=== PATIENT | male | born 1950 | race Caucasian/White ===

== ENCOUNTER 2016-09-23 14:44 | Emergency (ER) | payer OTHER ==
[2016-09-23 14:50] VITALS: TEMP 98; BMI 31.3
--- NOTE | 2016-09-23 15:02 | EDPRACDOC ---
<Diamond Robins N - Last Filed: 09/23/16 17:08> - General Information Source: Patient - History of Present Illness Exact Onset of Symptoms: Unknown Onset: 1 week Symptoms Started: Reports: Gradually, At Rest Symptoms: Reports: Diplopia Symptoms Description: Worsening Weakness: Left: Face (LEFT LID DROOP FOR THE LAST DAY;) Associated Symptoms: Denies: Facial Pain, Loss of Consciousness, Nausea/Vomiting , Nasal Congestion HPI: PT PRESENTS WITH A WEEK OF PROGRESSIVE DOUBLE VISION CAUSED BY DISCONJUGATE MOVEMENT OF HIS LEFT EYE. IT IS LAGGING BEHIND THE MOVEMENTS OF HIS RIGHT EYE. REPORTS EXCELLENT VISION UP UNTIL THIS TIME. WENT TO AN EYE DOCTOR THIS WEEK WHO REPORTED HE HAD SOME MISALIGNMENT. <Ge Swan - Last Filed: 09/23/16 17:23> - General Chief Complaint: Neuro Symptoms/Deficits Stated Complaint: STOKE-LIKE SYMPTOMS Time Seen by Provider: 09/23/16 14:54 Allergies/Adverse Reactions: Allergies Allergy/AdvReac Type Severity Reaction Status Date / Time morphine Allergy Unknown/See Verified 09/23/16 14:46 Comments Home Medications: Ambulatory Orders Allopurinol [Zyloprim] 100 mg PO DAILY 09/23/16 Aspirin (Enteric Coated) [Ecotrin] 81 mg PO DAILY 09/23/16 Benazepril HCl [Lotensin] 10 mg PO DAILY 09/23/16 Colchicine [Colcrys] 0.6 mg PO DAILY PRN 09/23/16 Diphenhydramine HCl 4 tsp PO QHS 09/23/16 Ergocalciferol (Vitamin D2) [Vitamin D2 (ergocalciferol)] 50,000 units PO MOFR 09/23/16 Gemfibrozil [Lopid] 600 mg PO BID 09/23/16 Metoprolol Succinate [Toprol Xl] 100 mg PO DAILY 09/23/16 Nitroglycerin [Nitrostat] 0.4 mg SL [id number] PRN 09/23/16 Omeprazole [Prilosec] 20 mg PO DAILY 09/23/16 Oxycodone HCl/Acetaminophen [Percocet 10-325 mg Tablet] 1 tab PO BID PRN ED Past Medical History - History Reviewed Yes Nurses notes reviewed and agree except as marked - Patient Medical History Cardiac History: Reports: Hypertension, Hypercholesterolemia Psychological History: Denies: Depression Systemic History: Reports: Diabetes Surgical History: Reports: Cholecystectomy - Social Medical History Smoking Status: Never smoker Lives With: Family Lives In: Home <Ge Swan Anjali - Last Filed: 09/23/16 17:23> EDM Review of Systems - Review of Systems ROS Negative Except as Marked: Yes All systems reviewed and were negative except as marked Constitutional: negative: Fever Eyes: Double Vision, Other (LEFT EYE IS MOVING SLOWER THAN HIS RIGHT) Respiratory: negative: Shortness of Breath Cardiovascular: negative: Chest Pain Gastrointestinal: negative: Pain, Vomiting Neurological: negative: Gait Difficulty, Headache, Speech Difficulty <BenyGe C - Last Filed: 09/23/16 17:23> - Physical Exam Last recorded Vital Signs: Last Vital Signs Temp 98.0 F 09/23/16 14:46 Pulse 69 09/23/16 16:50 Resp 18 09/23/16 16:50 BP 129/71 09/23/16 16:50 Pulse Ox 93 09/23/16 16:50 Oxygen Pulse Oxygen Saturation 93 O2 Device Oxygen Flow Rate Fraction of Inspired Oxygen ( FIO2) <Diamond Robins - Last Filed: 09/23/16 17:08> - Physical Exam Constitutional: Alert Oriented to: Time, Person, Place Last recorded Vital Signs: Last Vital Signs Temp 98.0 F 09/23/16 14:46 Pulse 84 09/23/16 14:46 Resp 18 09/23/16 14:46 BP 149/83 09/23/16 14:46 Pulse Ox 96 09/23/16 14:46 Oxygen Pulse Oxygen Saturation 96 O2 Device Oxygen Flow Rate Fraction of Inspired Oxygen ( FIO2) - HEENT Head: negative: Deformity, Laceration Nose: negative: Congestion, Discharge Neck: negative: Limited ROM - Respiratory/Cardiovascular Respiratory: Normal - CTA. negative: Accessory Muscle Use, Diminished, Tachypnea Cardiovascular: negative: Bradycardia, Tachycardia, Irregular - Integumentary Skin: Warm, Dry. negative: Rash - Neurologic Memory Impaired: Normal Motor Function: Normal Mood Description: Anxious, Appropriate Thought: Coherent Perception: Normal <Ag Swanallison Alba - Last Filed: 09/23/16 17:23> NIH Stroke Scale Initial Evaluation Level of Consciousness: Alert LOC- Question: Answers Both Correctly LOC Commands: Both Task Correctly Best Gaze: Normal Visual: No Visual Loss Facial Palsy: Minor Paralysis Motor Arm LEFT: No Drift Motor Arm RIGHT: No Drift Motor Leg LEFT: No Drift Motor Leg RIGHT: No Drift Limb Ataxia: Absent Sensory: Normal Best Language: No Aphasia Dysarthria: Normal Extinction and Inattention: No Abnormality (Neglect) Score: 1out of42 <BenyGe C - Last Filed: 09/23/16 17:23> - Results 09/23/16 15:05 09/23/16 15:05 WBC 14.8 xk/uL (3.8-10.8) H 09/23/16 15:05 RBC 5.82 xM/uL (4.70-6.10) 09/23/16 15:05 Hgb 17.2 g/dL (14.0-18.0) 09/23/16 15:05 Hct 50.0 % (42-52) 09/23/16 15:05 MCV 86 fL (80-94) 09/23/16 15:05 MCH 29.5 pg (27-32) 09/23/16 15:05 MCHC 34.4 g/dl (33-36) 09/23/16 15:05 RDW 13.3 % (11.5-14.5) 09/23/16 15:05 Plt Count 228 xk/uL (130-400) 09/23/16 15:05 MPV 8.3 fL (7.4-10.4) 09/23/16 15:05 Neut % (Auto) 71.3 % (45-76) 09/23/16 15:05 Lymph % (Auto) 17.7 % (17-44) 09/23/16 15:05 Jenkins % (Auto) 7.6 % (3-10) 09/23/16 15:05 Eos % (Auto) 2.4 % (0-5) 09/23/16 15:05 Baso % (Auto) 1.0 % (0-2) 09/23/16 15:05 Absolute Neuts (auto) 10.51 xk/uL (1.7-8.2) H 09/23/16 15:05 Absolute Lymphs (auto) 2.52 xk/uL (0.65-4.75) 09/23/16 15:05 PT 11.0 SEC (9.2-11.2) 09/23/16 15:05 INR 1.1 09/23/16 15:05 APTT 28.2 SEC (22-35) 09/23/16 15:05 Sodium 136 mEq/L (137-146) L 09/23/16 15:05 Potassium 4.1 mEq/L (3.5-5.1) 09/23/16 15:05 Chloride 101 mEq/L (98-107) 09/23/16 15:05 Carbon Dioxide 18 mMOL/L (22-33) L 09/23/16 15:05 Anion Gap 21 mEq/L (8-16) H 09/23/16 15:05 BUN 27 MG/DL (9-20) H 09/23/16 15:05 Creatinine 1.40 MG/DL (0.66-1.25) H 09/23/16 15:05 Estimated GFR (MDRD) 51 mL/min (>=60) L 09/23/16 15:05 Glucose 149 MG/DL (70-99) H 09/23/16 15:05 Calculated Osmolality 270 MOs/Kg (270-290) 09/23/16 15:05 Calcium 9.3 MG/DL (8.4-10.2) 09/23/16 15:05 Total Bilirubin 1.0 MG/DL (0.2-1.3) 09/23/16 15:05 AST 34 IU/L (17-59) 09/23/16 15:05 ALT 40 IU/L (21-72) 09/23/16 15:05 Alkaline Phosphatase 92 IU/L (50-160) 09/23/16 15:05 Troponin I < 0.01 ng/mL (<.04) 09/23/16 15:05 Total Protein 8.5 G/DL (6.3-8.2) H 09/23/16 15:05 Albumin 4.4 G/DL (3.5-5.0) 09/23/16 15:05 Lab Results 09/23/16 09/23/16 09/23/16 15:05 15:05 15:05 WBC 14.8 H RBC 5.82 Hgb 17.2 Hct 50.0 MCV 86 MCH 29.5 MCHC 34.4 RDW 13.3 Plt Count 228 MPV 8.3 Neut % (Auto) 71.3 Lymph % (Auto) 17.7 Jenkins % (Auto) 7.6 Eos % (Auto) 2.4 Baso % (Auto) 1.0 Absolute Neuts (auto) 10.51 H Absolute Lymphs (auto) 2.52 PT 11.0 INR 1.1 APTT 28.2 Sodium 136 L Potassium 4.1 Chloride 101 Carbon Dioxide 18 L Anion Gap 21 H BUN 27 H Creatinine 1.40 H Estimated GFR (MDRD) 51 L Glucose 149 H Calculated Osmolality 270 Calcium 9.3 Total Bilirubin 1.0 AST 34 ALT 40 Alkaline Phosphatase 92 Troponin I < 0.01 Total Protein 8.5 H Albumin 4.4 <Diamond Robins - Last Filed: 09/23/16 17:08> - Re-evaluation Re-evaluation 1 Re-evaluation Time: 17:[address] MCKINNON, NEUROLOGY, HE RECOMMENDS TESTING FOR MYASTHENIA GRAVIS AND THEN FOLLOW UP IN OFFICE. - Results 09/23/16 15:05 09/23/16 15:05 - EKG EKG #1 EKG Time: 15:10 -: Yes EKG interpreted by me Rate: bpm: 74 [place]azy: LAD Rhythm: NSR Block: None <Ge Swan - Last Filed: 09/23/16 17:23> <Diamond Robins - Last Filed: 09/23/16 17:08> Decision Time to Discharge: 17:22 - Departure Yes I personally saw and evaluated the patient. Disposition: Home Education/Counseling Given To: Patient, Family Member Education/Counseling Given Regarding: Diagnosis, Treatment, Prognosis, Follow Up <Ge Swan - Last Filed: 09/23/16 17:23> - Departure Condition: Stable Final Diagnosis: Diplopia, LEFT LID LAG Instructions: Myasthenia Gravis (ED) Referrals: Ruby Marcelo NP [Primary Care Provider] - Call for Appointment Demar Mckinnon MD [Staff Physician] - Call for Appointment Additional Instructions: WE HAVE ORDERED SPECIALLY BLOOD TEST TO HELP YOUR FOLLOW-UP WITH NEUROLOGIST IN DIAGNOSING YOUR PROBLEM. THIS BLOOD TEST WILL NOT BE FOLLOWED BY THE EMERGENCY DEPARTMENT STAFF AND IS ONLY TO HELP WITH FOLLOW-UP WITH A NEUROLOGIST. ED Eye Problem Exam Eye Exam: right eye: normal inspection, left eye: EOMI (LEFT EYE MOVES AT SLOWER RATE THAN RIGHT BUT EVENTUALLY COMES TO SAME FOCAL ENDPOINT), bilateral eye: COY <Ge Swan - Last Filed: 09/23/16 17:23>
[2016-09-23 15:18] LABS: AUTOMATED EOSINOPHIL 2.4 % (0-5); AUTOMATED LYMPH 17.7 % (17-44); AUTOMATED MONOCYTE 7.6 % (3-10); AUTOMATED NEUTROPHIL 71.3 % (45-76); MPV 8.3 fL (7.4-10.4)
[2016-09-23 15:31] LABS: BLOOD UREA NITROGEN 27 MG/DL (9-20); CALCIUM 9.3 MG/DL (8.4-10.2); CALCULATED OSMOLALITY 270 MOs/Kg (270-290); CHLORIDE 101 mEq/L (98-107); GLUCOSE 149 MG/DL (70-99); SODIUM LEVEL 136 mEq/L (137-146); TOTAL PROTEIN 8.5 G/DL (6.3-8.2)
[2016-09-23 15:32] LABS: PARTIAL THROMB. TIME 28.2 SEC (22-35); PT-INR 1.1
--- NOTE | 2016-09-23 15:37 | DIRPT ---
CLINICAL DATA: New onset left eye drift over the last week. EXAM: CT HEAD WITHOUT CONTRAST TECHNIQUE: Contiguous axial images were obtained from the base of the skull through the vertex without intravenous contrast. COMPARISON: None. FINDINGS: There is no intra or extra-axial fluid collection or mass lesion. The basilar cisterns and ventricles have a normal appearance. There is no CT evidence for acute infarction or hemorrhage. Bone windows are unremarkable. The globes are symmetric in size. Note is made of strabismus, with the left eye deviated laterally. Visualized portions of the orbits are grossly intact. IMPRESSION: No evidence for acute intracranial abnormality. Strabismus noted. Electronically Signed By: Tiffani Maurer M.D. On: 09/23/2016 15:35
--- NOTE | 2016-09-23 16:54 | DIRPT ---
CLINICAL DATA: Diplopia since Thursday. Left eye drooping. Headaches for 1 day. EXAM: MRI HEAD WITHOUT AND WITH CONTRAST TECHNIQUE: Multiplanar, multiecho pulse sequences of the brain and surrounding structures were obtained without and with intravenous contrast. CONTRAST: 20 mL MultiHance COMPARISON: CT head without contrast from the same day. FINDINGS: The diffusion-weighted images demonstrate no evidence for acute or subacute infarction. No acute hemorrhage or mass lesion is present. The ventricles are of normal size. No significant extra-axial fluid collection is present. There is no significant white matter disease. The brainstem and cerebellum are normal. Flow is present in the major intracranial arteries. The globes and orbits are intact. The postcontrast images demonstrate no pathologic enhancement. Skullbase is normal. The internal auditory canals are within normal limits. Midline sagittal images are unremarkable. IMPRESSION: 1. Negative MRI of the brain. Electronically Signed By: Victorino Conroy M.D. On: 09/23/2016 16:52
[2016-09-23 17:47] VITALS: BP 151/79; PULSE 71
== END 2016-09-23 17:40 | disposition home or self-care (01) ==
LOC: ED 14:44
DX: H53.2 Diplopia (principal); I10 Essential (primary) hypertension; E78.00 Pure hypercholesterolemia, unspecified; E11.9 Type 2 diabetes mellitus without complications; Z79.82 Long term (current) use of aspirin; Z79.899 Other long term (current) drug therapy
CPT/HCPCS: 36415; 70450; 70553; 80053; 84484; 85025; 85610; 85730; 93005; 99285; A9577